=== PATIENT | female | born 2000 | race Hispanic/Latino ===

== ENCOUNTER 2019-04-25 19:51 | Emergency (ER) | payer BC ==
[~2019-04-25 19:51] MED LIST: Iopamidol 370 76% 100 ML VIAL ONE
--- NOTE | 2019-04-25 20:35 | RAD ---
XR Chest Pa Lat STANDARD History: Chest pain Comparison: None. Findings: Lungs are clear. No pneumothorax or effusion. Cardiac silhouette and mediastinal contours a re within normal limits. Impression: No acute intrathoracic abnormality.
[2019-04-25 21:43] LABS: #Eosinphils 0.1 thou/uL (0.0-0.7); #Monocytes 0.7 thou/uL (0.11-0.59); #Neutrophils 3.9 thou/uL (1.40-6.50); %Basophils 0.2 % (0.0-1.0); %Eosinophils 1.7 % (0.0-10.0); %Lymphocytes 38.9 % (21.0-51.0); %Monocytes 8.7 % (0.0-10.0); %Neutrophils 50.4 % (42.0-75.0); Hemoglobin 12.6 g/dL (12.0-16.0); Mean Corpuscular HGB CONC 34.4 g/dL (32.0-36.0); Mean Corpuscular Hemoglobin 27.8 pg (27.0-31.0); Mean Corpuscular Volume 80.7 fL (78.0-98.0); Mean Platelet Volume 7.9 fL (7.4-10.4); Platelet Count 226 thou/uL (130-400); Red Blood Cell (RBC) Count 4.52 mill/uL (4.20-5.40); White Blood Cell (WBC) Count 7.7 thou/uL (4.8-10.8)
[2019-04-25 22:03] LABS: Anion Gap 11 mmol/L (10-20); BUN (Urea Nitrogen) 11 mg/dL (7.0-18.7); Calc. Creatinine Clearance 0 mL/min (70-130); Carbon Dioxide 23 mmol/L (22-29); Chloride 106 mmol/L (98-107); Estimated GFR-MDRD Greater than 90; Glucose 89 mg/dL (70-105); Potassium 3.2 mmol/L (3.5-5.1); Sodium 137 mmol/L (136-145)
[2019-04-25 22:55] LABS: BHCG - Serum Negative (NEGATIVE); Pregs Control Background? CLEAR/WHITE (CLR/WHITE); Pregs Control Bar Appear? YES (CONTROL BAR)
--- NOTE | 2019-04-25 23:20 | CT ---
CTA Angio Chest W WO Con History: Chest pain Comparison: Radiograph same day Findings: CT angiogram chest performed after the intravenous ministration of contrast. 3-D rendering provided. Exam is limited due to the delayed phase of contrast. No pericardial effusion. Limited evaluation of the upper abdomen is unremarkable. Sternum and manubrium are intact. Thoracic spine is intact. Lungs are clear. No pneumothorax, effusion, or airspace consolidation. Lucency of the manubrium near the sternal notch with peripheral sclerosis is a benign appearance, lik chuck a chondroma. No displaced rib fracture. No adenopathy. Impression: 1. No proximal segmental pulmonary arterial filling defect. 2. No acute inflammatory process within the chest.
== END 2019-04-26 00:13 | disposition home or self-care (01) ==
LOC: ERS 19:51
DX: R07.81 Pleurodynia (principal)
CPT/HCPCS: 71046; 71275; 80048; 84703; 85025; 85379; 93005; 96360; 96361; Q9967